=== PATIENT | male | born 1940 | race Caucasian/White ===

== ENCOUNTER → 2020-04-17 07:27 | Outpatient (REF) | payer OTHER, SELFPAY | LOC: ANHLAB 07:27 | PROVIDERS: Visit Provider Nurse Practitioner | DX: C44.311 Basal cell carcinoma of skin of nose (principal) | CPT/HCPCS: 88305; 88331 ==

== ENCOUNTER → 2020-09-18 10:33 | Outpatient (REF) | payer OTHER, SELFPAY | LOC: ANHLAB 10:33 | PROVIDERS: Visit Provider Nurse Practitioner | DX: C44.311 Basal cell carcinoma of skin of nose (principal) | CPT/HCPCS: 88305; 88331 ==